=== PATIENT | female | born 1950 | race Caucasian/White ===

== ENCOUNTER 2017-09-14 19:22 | Observation (INO) ==
[2017-09-14] MEDS ORDERED: Aspirin 81 MG TAB.CHEW PO ONE (19:44)
[2017-09-14] MEDS ORDERED: Nitroglycerin 0.4 MG TAB.SUBL SL PRN (19:44)
--- NOTE | 2017-09-14 19:56 | Emergency Department Note ---
Disposition Clinical Impression: Chest pain Qualifiers: Chest pain type: unspecified Qualified Code(s): R07.9 - Chest pain, unspecified Disposition: Admitted As Inpatient Condition: Fair Time of Disposition: 22:20 General Adult HPI - General Chief complaint: ED Shortness of Breath/Dyspnea Stated complaint: ronit chest pain Time Seen by Provider: 09/14/17 19:32 Source: patient Mode of arrival: ambulatory Limitations: no limitations Nursing Notes Reviewed: Yes Vital Signs Reviewed: Yes - History of Present Illness HPI Narrative: Patient is a 66 showed female with history of heart catheterization with no stents presents to the emergency department for the complaint of substernal chest pain that is pressure-like, 7/10 pain, with radiation into her left arm, back, and neck. She is associated with exertion and shortness of breath. No nausea or vomiting. States that the pain has been constant since 7:30 AM this morning and was sudden onset. Pain Scale: 9 - Related Data Home Medications Medication Instructions Recorded Confirmed Albuterol Sulfate [Albuterol 2 puff IH Q4HR 06/24/15 01/19/16 Inhaler] Citalopram Hydrobromide [Celexa] 20 mg PO DAILY 06/24/15 01/19/16 Fluticasone Propionate Nasal 1 spray NS DAILY 06/24/15 01/19/16 [Flonase] Gabapentin [Neurontin] 600 mg PO TID 06/24/15 01/19/16 Loratadine [Claritin] 10 mg PO DAILY 06/24/15 01/19/16 Pantoprazole Sodium [Protonix] 40 mg PO DAILY 06/24/15 01/19/16 Propranolol LA (24 HR) [Inderal LA] 60 mg PO DAILY 06/24/15 01/19/16 Simvastatin [Zocor] 20 mg PO QPM 06/24/15 01/19/16 Venlafaxine HCl [Effexor Xr] 75 mg PO DAILY 06/24/15 01/19/16 Cyclobenzaprine [Flexeril] 10 mg PO BID 01/19/16 01/19/16 Hydrocodone/Acetaminophen [[place] 1 tab PO Q6H PRN 01/19/16 01/19/16 5-325 Tablet] Ranitidine HCl [Zantac] 300 mg PO DAILY 01/19/16 01/19/16 Tiotropium [Spiriva] 1 cap IH DAILY 01/19/16 01/19/16 Previous Rx's Medication Instructions Recorded Nitroglycerin 0.4 mg SL Q5MIN PRN #90 tab.subl 06/26/15 Allergies Allergy/AdvReac Type Severity Reaction Status Date / Time Diclofenac [From Voltaren] Allergy See Verified 02/21/15 08:25 Comments acetaminophen [From Percocet] AdvReac See Verified 02/03/15 23:10 Comments codeine AdvReac Nausea Verified 02/03/15 23:10 Erythromycin Base AdvReac Nausea Verified 02/03/15 23:10 [From E-Mycin] Oxycodone [From Percocet] AdvReac See Verified 02/03/15 23:10 Comments Sulfa (Sulfonamide AdvReac See Verified 02/03/15 23:10 Antibiotics) Comments All systems ED: reviewed and negative except as stated. Review of Systems: As Per HPI Constitutional: Denies: fever, chills Cardiovascular: Reports: chest pain. Denies: palpitations Respiratory: Denies: cough, dyspnea, wheezes Past Medical History - Past Medical History Attestation: Yes The following information was validated with the patient. 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 Patient does appear anxious. Tachycardic at 103 and blood pressure is elevated in the 160's/90's. HEAD: Normocephalic; atraumatic EYES: PERRL, no scleral icterus NOSE: The nose is normal in appearance without rhinorrhea NECK: No JVD or distended neck veins RESP: Normal chest excursion with respiration; breath sounds clear and equal bilaterally; no wheezes, rhonchi, or rales CARD: Regular rhythm, without murmurs, rub or gallop ABD: Non-distended; non-tender, soft, without rigidity, rebound or guarding,no pulsatile mass CHEST: No pain with palpation SKIN: Normal for age and race; warm and dry without diaphoresis ; no apparent lesions EXTREMITIES: Pulses are 2 plus and equal times 4 extremities, no peripheral edema or calf muscle pain - General General appearance: alert Course Course Narrative: Plan at this time is to perform a cardiac evaluation for this emergency medicine standpoint which will include a troponin, EKG and chest x-ray. We will also order a d-dimer to rule out a pulmonary embolism. Patient will undergo a sublingual nitroglycerin trial to see if that improves her pain and will also be given aspirin at this time. Her EKG shows no ischemic changes at this time. - Reevaluation(s) Reevaluation #1: Patient's lab work has returned as essentially unremarkable. Her troponin is negative, chest x-ray is negative as well. The patient did have an elevated d- dimer, however chest CTA was negative for pulmonary embolism. Patient states that her pain is currently improved to a 3/10. She was trialed a nitroglycerin that brought her pain scale down by 1., however her blood pressure had a large drop to systolic 90s. Therefore further nitroglycerin was withheld. At this time the patient's workup is negative. Discussed plan to give her ibuprofen for her current chest pain that is 3 out of 10. Admitted to the hospital for further evaluation and treatment of her pain. Time: 22:20 Vital Signs Temperature 97.6 F 09/14/17 19:23 Pulse Rate 111 09/14/17 19:23 Respiratory Rate 22 09/14/17 19:23 Blood Pressure 174/104 09/14/17 19:23 O2 Sat by Pulse Oximetry 97 09/14/17 19:23 Temperature 97.6 F 09/14/17 19:23 Pulse Rate 94 09/14/17 21:56 Respiratory Rate 16 09/14/17 21:56 Blood Pressure 104/70 09/14/17 21:56 O2 Sat by Pulse Oximetry 96 09/14/17 21:56 Oxygen Delivery Oxygen Delivery Nasal Cannula Medical Decision Making - Medical Records Medical records reviewed: Yes I reviewed the patient's medical records. - Lab Data Lab results reviewed: Yes I reviewed the patient's lab results. Result diagrams: 09/14/17 19:39 09/14/17 19:39 Lab Results 09/14/17 09/14/17 09/14/17 Range/Units 19:39 19:39 19:39 WBC 7.5 (4.3-11.1) K/mcL RBC 4.99 H (3.82-4.97) M/mcL Hgb 12.6 (11.5-15.4) g/dL Hct 41.1 (35.3-44.9) % MCV 82.4 L (83.0-100.0) fL MCH 25.3 L (28.0-33.3) pg MCHC 30.7 L (31.6-35.5) g/dL RDW 14.7 H (11.5-14.5) % Plt Count 374 (140-400) K/mcL MPV 10.2 (9.4-12.4) fL Immature Gran % 0.5 (0-4) % Seg Neutrophils % 54.5 % Lymphocytes % 31.1 % Monocytes % 8.7 % Eosinophils % 4.4 % Basophils % 0.8 % Neutrophils # 4.1 (1.6-8.9) K/mcL Lymphocytes # 2.3 (0.6-4.6) K/mcL Monocytes # 0.7 (0.0-1.3) K/mcL Eosinophils # 0.3 (0.0-0.6) K/mcL Basophils # 0.1 (0.0-0.2) K/mcL D-Dimer 1470 H (0-500) ng/mLFEU Sodium 141 (136-145) mEq/L Potassium 3.3 L (3.5-5.1) mEq/L Chloride 109 H (98-107) mEq/L Carbon Dioxide 23 (23-29) mEq/L BUN 12 (8-23) mg/dL Creatinine 0.93 (0.60-1.20) mg/dL Est GFR ( Amer) > 60 (> 60) Est GFR (Non-Af Amer) > 60 (> 60) BUN/Creatinine Ratio 13 (6-26) Glucose 147 H (70-105) mg/dL Calculated Osmolality 294 (280-300) Lactic Acid (0.5-2.2) mmol/L Calcium 9.3 (8.6-10.3) mg/dL Troponin I < 0.03 (< 0.04) ng/mL B-Natriuretic Peptide (Less than 100) pg/mL 09/14/17 09/14/17 09/14/17 Range/Units 19:39 19:39 22:05 WBC (4.3-11.1) K/mcL RBC (3.82-4.97) M/mcL Hgb (11.5-15.4) g/dL Hct (35.3-44.9) % MCV (83.0-100.0) fL MCH (28.0-33.3) pg MCHC (31.6-35.5) g/dL RDW (11.5-14.5) % Plt Count (140-400) K/mcL MPV (9.4-12.4) fL Immature Gran % (0-4) % Seg Neutrophils % % Lymphocytes % % Monocytes % % Eosinophils % % Basophils % % Neutrophils # (1.6-8.9) K/mcL Lymphocytes # (0.6-4.6) K/mcL Monocytes # (0.0-1.3) K/mcL Eosinophils # (0.0-0.6) K/mcL Basophils # (0.0-0.2) K/mcL D-Dimer (0-500) ng/mLFEU Sodium (136-145) mEq/L Potassium (3.5-5.1) mEq/L Chloride (98-107) mEq/L Carbon Dioxide (23-29) mEq/L BUN (8-23) mg/dL Creatinine (0.60-1.20) mg/dL Est GFR ( Amer) (> 60) Est GFR (Non-Af Amer) (> 60) BUN/Creatinine Ratio (6-26) Glucose (70-105) mg/dL Calculated Osmolality (280-300) Lactic Acid 2.4 H 1.3 (0.5-2.2) mmol/L Calcium (8.6-10.3) mg/dL Troponin I (< 0.04) ng/mL B-Natriuretic Peptide 42 (Less than 100) pg/mL - Radiology Data Radiology results reviewed: Yes I reviewed the patient's radiology results. Chest X-Ray 09/14/17 19:26 IMPRESSION: No radiographic evidence of acute cardiopulmonary disease. D/ / Nicko Baires / Nicko Baires Interpreting Provider: Nicko Baires Chest CTA 04/07/18 20:31 IMPRESSION: 1. No evidence of pulmonary embolic disease. 2. No acute pulmonary findings. Previous right upper lobectomy. D/ / 09/14/2017 21:16:36 Royal Lyon MD / mari Interpreting Provider: Royal Lyon MD - EKG Data EKG #1 EKG attestation: Yes I reviewed and interpreted this EKG. EKG results narrative: EKG done at 19:27 shows sinus tachycardia at a rate of 108 bpm. Normal axis. [place] is 151, QRS is 69, QT is 320 and QTc is 383 these are within normal limits. No signs of ST elevation, ST depression or Q waves present. This EKG has no acute changes from EKG done on December 222015. Attestation Statement - Attestation Attestation: Patient was seen with resident physician. I reviewed the history, physical, assessment and plan, and agree with the findings. I also personally evaluated this patient and had [id number] time with this patient. 66-year-old female presents to the emergency department with chief complaint of chest pain and shortness of breath. Sudden onset 7:30 this morning. Chest chest pain is a pressure sensation in the midsternal area. Shortness of breath is associated with the episodes. They last approximately 10 minutes in duration and have thus far responded spontaneously. His worse or exacerbated by walking. She says she cannot even walk to the kitchen from the living room at this point. She gets short of breath chest pain and she feels lightheaded. Denies nausea vomiting or diarrhea. Physical exam vital signs are stable. ENT is unremarkable. Heart and lungs are normal. Abdomen is soft and nontender. Extremities unremarkable. Neurologically intact. Skin no rashes. Psych normal. ED course we will treat patient's discomfort with nitroglycerin she is actively having chest pain. Her EKG showsacute ischemic changes. We will also do a full cardiac workup and admit the patient to the hospitalist service for additional evaluation and treatment. Pain was improved throughout her stay but not completely resolved. She was given a nitroglycerin which showed her blood pressure significantly. Additional nitroglycerin was withheld at that point. Hemodynamically she remained stable while in the emergency department I agree with the resident physician assessment and plan.
[2017-09-14 20:00] LABS: Basophils # 0.1 K/mcL (0.0-0.2); Basophils % 0.8 %; Eosinophils # 0.3 K/mcL (0.0-0.6); Eosinophils % 4.4 %; Hematocrit 41.1 % (35.3-44.9); Hemoglobin 12.6 g/dL (11.5-15.4); Immature Granulocytes % 0.5 % (0-4); Lymphocytes # 2.3 K/mcL (0.6-4.6); Lymphocytes % 31.1 %; Mean Corpuscular HGB Conc 30.7 g/dL (31.6-35.5); Mean Corpuscular Hemoglobin 25.3 pg (28.0-33.3); Mean Corpuscular Volume 82.4 fL (83.0-100.0); Mean Platelet Volume 10.2 fL (9.4-12.4); Monocytes # 0.7 K/mcL (0.0-1.3); Monocytes % 8.7 %; Neutrophils # 4.1 K/mcL (1.6-8.9); Platelet Count 374 K/mcL (140-400); Red Blood Count 4.99 M/mcL (3.82-4.97); Red Cell Distribution Width 14.7 % (11.5-14.5); Segmented Neutrophils % 54.5 %
[2017-09-14 20:18] LABS: BUN/Creatinine Ratio 13 (6-26); Blood Urea Nitrogen 12 mg/dL (8-23); Calcium 9.3 mg/dL (8.6-10.3); Carbon Dioxide 23 mEq/L (23-29); Chloride 109 mEq/L (98-107); Glucose 147 mg/dL (70-105); Osmolality,Calculated 294 (280-300); Potassium 3.3 mEq/L (3.5-5.1); Sodium 141 mEq/L (136-145); Troponin I < 0.03 ng/mL (< 0.04); eGFR For African Americans > 60 (> 60); eGFR For Non-African Americans > 60 (> 60)
[2017-09-14] MEDS ORDERED: Ibuprofen 600 MG TABLET PO ONE (22:17)
[2017-09-14] MEDS ORDERED: Naloxone 0.4 MG/ML INJ IVP PRN (22:56)
--- NOTE | 2017-09-14 23:03 | Internal Med History&Physical ---
Date of Encounter: 09/15/17 Time of Encounter: 23:01 Internal Medicine - H&P: HPI Chief complaint: Chest pain Admitted From: Emergency Dept Plans for Post Hospital Care: Home History of present illness: Ms. Groves is a 66 year old female with h/o COPD on 2L O2, lung cancer s/p right upper lobectomy in 2006, GERD, hyperlipidemia, hypertension, and TIA comes with complaint of substernal chest pain that is pressure-like, 7/10 pain, with radiation into her left arm, back, and neck. She reports pain with exertion and shortness of breath. No nausea or vomiting. No diaphoresis. Pain started at 7 in the morning and was sudden. EKG showed sinus tachycardia. No ST or T-wave changes. Workup was only remarkable for elevated D dimers for which a CTA ruled out a PE. Denies fever, chills, nausea, vomiting, abdominal pain, diarrhea, constipation, urinary symptoms, or neurological symptoms. The patient had a stress test back in 2015 which was negative. 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 She also has h/o TIA years ago and does not take ASA or Plavix but tells me she takes a statin. Has a h/o tobacco abuse and strong family history of cardiac disease. Past Med Surg Social Fam HX - Past Medical History Medical history: arthritis, cancer, COPD, CVA, GERD, hyperlipidemia, hypertension, other Psychiatric history: no psych history - Past Surgical History Surgical History: cancer surgery, cholecystectomy, herniorrhaphy, hysterectomy, other - Social History Smoking Status: Former smoker Smokeless Tobacco Status: No Alcohol use: occasionally Drug use: none - Family History Mother Adopted: No Living Status: Hx Family Cardiac Disorders: No Hx Family Respiratory Disorders: No Hx Family Cancer: No Hx Family GI Disorders: No Hx Family Endocrine Disorder: No Hx Family Neuromuscular Disorders: No Hx Family Neurologic Disorders: No Hx Family HEENT Disorders: No Hx Family Autoimmune Disorders: No Father Adopted: No Family Member Ethnicity: Non- Living Status: Age at : 62 Cause of : Black lung Hx Family Cardiac Disorders: Yes ([place]) Hx Family Respiratory Disorders: Yes (black lung) Hx Family Cancer: Yes (lung) Hx Family GI Disorders: No Hx Family Genitourinary Disorders: No Hx Family Endocrine Disorder: No Hx Family Musculoskeletal Disorders: No Hx Family Neuromuscular Disorders: No Hx Family Neurologic Disorders: No Hx Family HEENT Disorders: No Hx Family Autoimmune Disorders: No Hx Family Reproductive Disorders: No Hx Family Psychosocial Disorders: No Hx Family Medical Disorders: No Internal Medicine - H&P: Meds Albuterol Inhaler 1 puff IH 2-4XD PRN 09/14/17 [History] CeleXA 40 mg PO DAILY 09/14/17 [History] Flomax 0.4 mg PO DAILY 09/14/17 [History] Gabapentin 600 mg PO DAILY 09/14/17 [History] Inderal 40 mg PO DAILY 09/14/17 [History] PriLOSEC 40 mg PO DAILY 09/14/17 [History] Simvastatin [Zocor] 40 mg PO HS 09/14/17 [History] Spiriva IH DAILY 09/14/17 [History] 3 Allergy/AdvReac Type Severity Reaction Status Date / Time Diclofenac [From Voltaren] Allergy See Verified 02/21/15 08:25 Comments acetaminophen [From Percocet] AdvReac See Verified 02/03/15 23:10 Comments codeine AdvReac Nausea Verified 02/03/15 23:10 Erythromycin Base AdvReac Nausea Verified 02/03/15 23:10 [From E-Mycin] Oxycodone [From Percocet] AdvReac See Verified 02/03/15 23:10 Comments Sulfa (Sulfonamide AdvReac See Verified 02/03/15 23:10 Antibiotics) Comments All Systems PM: A 10-system review of systems was performed and is negative for pertinent findings except as documented above in the HPI. Review of systems: All systems reviewed are negative except as mentioned above - Constitutional Vitals: Temp Pulse Resp BP Pulse Ox 97.6 F 94 16 104/70 96 09/14/17 19:23 09/14/17 21:56 09/14/17 21:56 09/14/17 21:56 09/14/17 21:56 Exam: GEN: NAD HEENT: AT, NC, No cyanosis, oral mucosa is moist, No JVD Lymphatics: No lymphadenoapthy Eyes: Extrocular muscles intact, anicteric CVS:RRR. S1, S2, No m/r/g RESP: CTAB ABD: Soft, NT, ND, +BS EXT: No edema, No rashes, 2+ DP NEURO: Nonfocal, CN II-XII intact, No focal motor or sensory deficits Psych: Cooperative, Not anxious or depressed Internal Med - H&P Results - Labs CBC & Chem 7: 09/14/17 19:39 09/14/17 19:39 - Assessment and plan (1) Chest pain Current Visit: Yes Status: Acute Assessment and plan: Admit. Tele bed. trend cardiac enzymes. Stress test possibly Saturday. Check A1c , lipid panel. SL nitro. Received 4 baby ASA in ED and SL nitro. Pain is better. Says she had a LHC about 6 years ago?? Thinks she has a stent but not sure. Does not follow up with cardiology. Not on ASA at home. She is on Inderal. Qualifiers: Chest pain type: unspecified Qualified Code(s): R07.9 - Chest pain, unspecified (2) Elevated d-dimer Current Visit: Yes Status: Acute Assessment and plan: Check LE dopplers. CTA negative for PE. (3) Hypertension Current Visit: No Status: Acute Assessment and plan: Resume home anti-hypertensives. Qualifiers: Hypertension type: essential hypertension Qualified Code(s): I10 - Essential (primary) hypertension (4) COPD (chronic obstructive pulmonary disease) Current Visit: No Status: Acute Assessment and plan: Resume home inhalers. Not in exacerbation Qualifiers: COPD type: emphysema Emphysema type: unspecified Qualified Code(s): J43.9 - Emphysema, unspecified (5) H/O TIA (transient ischemic attack) and stroke Current Visit: Yes Status: Acute Assessment and plan: Patient is not on ASA. She is on statin. Consider adding ASA specially if patient has a stent as she says. (6) DVT prophylaxis Current Visit: No Status: Acute Assessment and plan: Heparin SQ - Time Spent With Patient Total time spent is greater than 50% in coordination of care (as documented) at patient's floor/unit and/or counseling patient:
[2017-09-14] MEDS: Acetaminophen 325 MG TABLET PO PRN (23:55)
[2017-09-15 03:10] LABS: Basophils # 0.1 K/mcL (0.0-0.2); Basophils % 0.8 %; Eosinophils # 0.3 K/mcL (0.0-0.6); Eosinophils % 4.2 %; Hematocrit 35.6 % (35.3-44.9); Hemoglobin 11.1 g/dL (11.5-15.4); Immature Granulocytes % 0.4 % (0-4); Lymphocytes # 2.2 K/mcL (0.6-4.6); Lymphocytes % 30.2 %; Mean Corpuscular HGB Conc 31.2 g/dL (31.6-35.5); Mean Corpuscular Hemoglobin 25.5 pg (28.0-33.3); Mean Corpuscular Volume 81.8 fL (83.0-100.0); Mean Platelet Volume 9.9 fL (9.4-12.4); Monocytes # 0.8 K/mcL (0.0-1.3); Monocytes % 11.1 %; Neutrophils # 3.9 K/mcL (1.6-8.9); Platelet Count 326 K/mcL (140-400); Red Blood Count 4.35 M/mcL (3.82-4.97); Red Cell Distribution Width 14.6 % (11.5-14.5); Segmented Neutrophils % 53.3 %
[2017-09-15 03:38] LABS: BUN/Creatinine Ratio 17 (6-26); Blood Urea Nitrogen 16 mg/dL (8-23); Calcium 9.2 mg/dL (8.6-10.3); Carbon Dioxide 23 mEq/L (23-29); Chloride 108 mEq/L (98-107); Glucose 104 mg/dL (70-105); Magnesium 1.8 mg/dL (1.6-2.6); Osmolality,Calculated 285 (280-300); Potassium 4.1 mEq/L (3.5-5.1); Sodium 137 mEq/L (136-145); eGFR For African Americans > 60 (> 60); eGFR For Non-African Americans > 60 (> 60)
[2017-09-15 03:39] LABS: Troponin I < 0.03 ng/mL (< 0.04)
[2017-09-15] MEDS: Acetaminophen 325 MG TABLET PO PRN (06:10)
[2017-09-15 07:59] LABS: Estimated Average Glucose 126 mg/dl
[2017-09-15 09:03] LABS: Chol/HDL Ratio 4.1 (0-4.9); Cholesterol 173 mg/dL (< 200); HDL Cholesterol 42 mg/dL (40-59); LDL Cholesterol,Calculated 100 mg/dL (0-99); Triglycerides 153 mg/dL (< 150)
[2017-09-15] MEDS: Gabapentin 300 MG CAPSULE PO SCH (09:03)
[2017-09-15 09:04] LABS: Troponin I < 0.03 ng/mL (< 0.04)
--- NOTE | 2017-09-15 14:38 | Internal Med Progress Note ---
Date of Encounter: 09/15/17 Time of Encounter: 14:36 - Assessment and plan (1) Chest pain Current Visit: Yes Status: Acute Assessment and plan: Most likely musculoskeletal. However given her risk factors and comorbidities, will plan for stress test in a.m. Qualifiers: Chest pain type: unspecified Qualified Code(s): R07.9 - Chest pain, unspecified (2) Hypertension Current Visit: Yes Status: Chronic Assessment and plan: Blood pressure is well controlled Qualifiers: Hypertension type: essential hypertension Qualified Code(s): I10 - Essential (primary) hypertension (3) COPD (chronic obstructive pulmonary disease) Current Visit: Yes Status: Chronic Assessment and plan: Will start bronchodilators as needed. Not in acute exacerbation Qualifiers: COPD type: emphysema Emphysema type: unspecified Qualified Code(s): J43.9 - Emphysema, unspecified (4) DVT prophylaxis Current Visit: Yes Status: Acute Assessment and plan: With SCDs (5) Elevated d-dimer Current Visit: Yes Status: Acute (6) H/O TIA (transient ischemic attack) and stroke Current Visit: Yes Status: Acute Assessment and plan: Will start patient on aspirin. Continue statin. - Time Spent With Patient Total time spent is greater than 50% in coordination of care (as documented) at patient's floor/unit and/or counseling patient: - Subjective Interval history: Sitting up in chair. Reports central chest pain. Worsens with movement, cough and deep breaths. - Constitutional Vitals: Temp Pulse Resp BP Pulse Ox 97.9 F 65 17 101/57 95 09/15/17 11:13 09/15/17 11:13 09/15/17 11:13 09/15/17 11:13 09/15/17 11:13 General appearance: Present: cooperative, A&O X 3, answers questions appropriately - Neck Neck exam general surgery: Present: supple, trachea midline. Absent: lymphadenopathy - Respiratory Respiratory exam: Present: CTAB. Absent: accessory muscle use, rales, rhonchi, wheezes - Cardiovascular Cardiovascular exam: Present: RRR, +S1, +S2. Absent: diastolic murmur, gallop, rubs, systolic murmur Additional comments: Anterior chest wall tenderness present. - Extremities Exam Extremities exam: Present: warm, radial pulses palpable and symmetrical. Absent : calf tenderness, cyanotic, pedal edema - Neurological Exam Neurological exam: Present: alert, oriented X3, no focal deficits. Absent: facial droop, speech deficit - Skin Skin exam: Present: dry, intact Internal Medicine: Result - Labs CBC & Chem 7: 09/15/17 02:52 09/15/17 02:52 Labs: Short CBC 09/15/17 Range/Units 02:52 WBC 7.4 (4.3-11.1) K/mcL Hgb 11.1 L D (11.5-15.4) g/dL Hct 35.6 (35.3-44.9) % Plt Count 326 (140-400) K/mcL Neutrophils # 3.9 (1.6-8.9) K/mcL BMP 09/15/17 02:52 Sodium 137 Potassium 4.1 Chloride 108 H Carbon Dioxide 23 BUN 16 Creatinine 0.93 Glucose 104 Calcium 9.2 Cardiac Enzymes 09/15/17 09/15/17 Range/Units 02:52 08:03 Troponin I < 0.03 < 0.03 (< 0.04) ng/mL - ABG Interpretation ABG results: PT/INR, D-dimer D-Dimer 1470 ng/mLFEU (0-500) H 09/14/17 19:39 Consult Discharge Plan - Plan Referrals: Miguel Vitale MD [Primary Care Provider] -
[2017-09-15] MEDS: *HR* HYDROcodone/Acet 5/325 mg TABLET PO PRN ×2 (14:45→20:43)
[2017-09-15] MEDS ORDERED: Ipratropium/Albuterol Neb 3 ML IH PRN (15:45)
[2017-09-16] MEDS ORDERED: Regadenoson 0.4 MG/5 ML SYRINGE IVP ONE (05:50)
[2017-09-16] MEDS: Gabapentin 300 MG CAPSULE PO SCH (07:48)
[2017-09-16] MEDS: Aspirin Enteric Coated 81 MG Tablet PO SCH (07:48)
[2017-09-16] MEDS: *HR* HYDROcodone/Acet 5/325 mg TABLET PO PRN (14:39)
[2017-09-16] MEDS ORDERED: Ketorolac 30 MG/ML VIAL IVP PRN (16:21)
--- NOTE | 2017-09-16 16:45 | Internal Med Progress Note ---
Date of Encounter: 09/16/17 Time of Encounter: 16:44 - Assessment and plan (1) Chest pain Current Visit: Yes Status: Acute Assessment and plan: Chest pain. Central in location. Most likely musculoskeletal but patient does have risk factors for coronary artery disease and angina. Stress test in process. Continue supportive care. Qualifiers: Chest pain type: precordial pain Qualified Code(s): R07.2 - Precordial pain (2) Hypertension Current Visit: Yes Status: Chronic Assessment and plan: Blood pressure is well controlled. Qualifiers: Hypertension type: essential hypertension Qualified Code(s): I10 - Essential (primary) hypertension (3) COPD (chronic obstructive pulmonary disease) Current Visit: Yes Status: Chronic Assessment and plan: Continue bronchodilators. Not in acute exacerbation. Qualifiers: COPD type: emphysema Emphysema type: unspecified Qualified Code(s): J43.9 - Emphysema, unspecified (4) DVT prophylaxis Current Visit: Yes Status: Acute Assessment and plan: On SCDs (5) Elevated d-dimer Current Visit: Yes Status: Acute Assessment and plan: No embolism per CTA (6) H/O TIA (transient ischemic attack) and stroke Current Visit: Yes Status: Acute Assessment and plan: Continue aspirin, statin - Time Spent With Patient Total time spent is greater than 50% in coordination of care (as documented) at patient's floor/unit and/or counseling patient: - Subjective Interval history: Evaluated patient and this morning. Patient was continuing to have central chest pain radiating to back. Improves with pain medications. Worsens with movement and deep breaths. Underwent part 1 of chronic stress test today. Part 2 scheduled for tomorrow morning. - Constitutional Vitals: Temp Pulse Resp BP Pulse Ox 98.4 F 71 18 116/70 94 09/16/17 14:24 09/16/17 14:24 09/16/17 14:24 09/16/17 14:24 09/16/17 14:24 General appearance: Present: cooperative, A&O X 3, answers questions appropriately - Neck Neck exam general surgery: Present: supple, trachea midline. Absent: lymphadenopathy - Respiratory Respiratory exam: Present: chest wall tenderness (Central chest wall tenderness) . Absent: accessory muscle use, rales, rhonchi, wheezes - Cardiovascular Cardiovascular exam: Present: RRR, +S1, +S2. Absent: diastolic murmur, gallop, rubs, systolic murmur - GI/Abdominal GI/Abdominal exam: Present: normal bowel sounds, soft, no peritoneal signs. Absent: distended, tenderness - Extremities Exam Extremities exam: Present: warm, radial pulses palpable and symmetrical. Absent : calf tenderness, cyanotic, pedal edema - Neurological Exam Neurological exam: Present: CN II-XII intact, oriented X3, no focal deficits. Absent: pronater drift, facial droop, speech deficit Internal Medicine: Result - Labs CBC & Chem 7: 09/15/17 02:52 09/15/17 02:52 - ABG Interpretation ABG results: PT/INR, D-dimer D-Dimer 1470 ng/mLFEU (0-500) H 09/14/17 19:39 Consult Discharge Plan - Plan Referrals: Miguel Vitale MD [Primary Care Provider] -
[2017-09-17] MEDS: Aspirin Enteric Coated 81 MG Tablet PO SCH (09:12)
[2017-09-17] MEDS: Gabapentin 300 MG CAPSULE PO SCH (09:12)
[2017-09-17 11:08] VITALS: BP 111/68
--- NOTE | 2017-09-17 12:47 | Discharge Summary ---
- NOTES TO OUTPATIENT PROVIDER Notes to Outpatient Provider: f/u with PCP within a week. Orders not resulted at time of discharge: Pending orders 09/15/17 04:00 NM hesham perf SPECT multi [NM] AM 0400 Date of Encounter: 09/17/17 Time of Encounter: 12:44 - Discharge Diagnosis (1) Chest pain Priority: Primary Status: Acute Qualifiers: Chest pain type: precordial pain Qualified Code(s): R07.2 - Precordial pain (2) Hypertension Priority: Secondary Status: Chronic Qualifiers: Hypertension type: essential hypertension Qualified Code(s): I10 - Essential (primary) hypertension (3) COPD (chronic obstructive pulmonary disease) Priority: Secondary Status: Chronic Qualifiers: COPD type: emphysema Emphysema type: unspecified Qualified Code(s): J43.9 - Emphysema, unspecified (4) DVT prophylaxis Priority: Primary Status: Acute (5) Elevated d-dimer Priority: Primary Status: Acute (6) H/O TIA (transient ischemic attack) and stroke Priority: Secondary Status: Chronic Hospital course: Ms. Groves is a 66 year old female with h/o COPD on 2L O2, lung cancer s/p right upper lobectomy in 2006, GERD, hyperlipidemia, hypertension, and TIA comes with complaint of substernal chest pain and shortness of breath. Troponin was negative 3, EKG showed sinus tachycardia. No ST or T-wave changes. Further workup revealed elevated D dimers for which a CTA ruled out a PE, doppler for DVT was also negative. She underwent stress nuclear test on 03/2018, results revealed no ischemic change. Her chest pain is mostly likely noncardiac related. Her vital signs have been stable. Her chest pain has resolved. She will be discharged home today. She will follow-up with PCP within a week. Discharge discussed with: patient Time spent discussing smoking cessation with patient: more than 10 minutes - Time Spent with Patient Total time spent providing and/or coordinating discharge services: Greater than 30 minutes - Discharge Medications Prescriptions: Aspirin Enteric Coated [Aspirin EC] 81 mg PO DAILY #60 tablet.dr Wooten Medications: Albuterol Sulfate [Proair Hfa] 1 puff IH DAILY PRN 09/14/17 [History] Citalopram Hydrobromide [Citalopram HBr] 40 mg PO DAILY 09/14/17 [History] Gabapentin [Neurontin] 600 mg PO BID 09/14/17 [History] Omeprazole [PriLOSEC] 40 mg PO DAILY 09/14/17 [History] Propranolol HCl 40 mg PO DAILY 09/14/17 [History] Simvastatin [Zocor] 40 mg PO HS 09/14/17 [History] Tamsulosin [Flomax] 0.4 mg PO DAILY 09/14/17 [History] Tiotropium [Spiriva] 18 mcg IH 0700 09/14/17 [History] Aspirin Enteric Coated [Aspirin EC] 81 mg PO DAILY #60 tablet. 09/17/17 [Rx] Allergies/Adverse Reactions: 3 Allergy/AdvReac Type Severity Reaction Status Date / Time Diclofenac [From Voltaren] Allergy See Verified 09/16/17 11:37 Comments acetaminophen [From Percocet] AdvReac See Verified 09/16/17 11:37 Comments codeine AdvReac Nausea Verified 09/16/17 11:37 Erythromycin Base AdvReac Nausea Verified 09/16/17 11:37 [From E-Mycin] Oxycodone [From Percocet] AdvReac See Verified 09/16/17 11:37 Comments Sulfa (Sulfonamide AdvReac See Verified 09/16/17 11:37 Antibiotics) Comments Date of admission: 09/14/17 22:40 Primary care physician: Miguel Vitale MD Anticipated date of discharge: 09/17/17 - Constitutional Vitals: Temp Pulse Resp BP Pulse Ox 97.9 F 73 14 111/68 94 09/17/17 11:03 09/17/17 11:03 09/17/17 11:03 09/17/17 11:03 09/17/17 11:03 General appearance: Present: cooperative, A&O X 3, answers questions appropriately Exam: PHYSICAL EXAMINATION: GENERAL APPEARANCE: The patient is alert, oriented and in no acute distress. HEENT: Head is normocephalic. The sinuses are nontender. Pupils are equal and reactive. The nares are patent. Oropharynx clear without lesions. NECK: Supple without lymphadenopathy. HEART: Regular rate and rhythm. LUNGS: No crackles or wheezes are heard. ABDOMEN: Soft, nontender, nondistended with good bowel sounds heard. Inguinal area is normal. EXTREMITIES: Without cyanosis, clubbing or edema. NEUROLOGICAL: Gross nonfocal. SKIN: Warm and dry without any rash. - Patient Status Disposition: Home, Self-Care Condition: Fair Functional capacity at discharge: independent ambulation Overall status at discharge: patient is back to baseline - Discharge Instructions Follow Up With: Miguel Vitale MD [Primary Care Provider] - - Diet and Activity Activity: increase activity as tolerated Diet: low fat, low cholesterol, low salt diet
--- NOTE | 2017-09-18 00:27 | Electrocardiograph Report ---
[place] [id number] Test Date: 2017-09-14 Pat Name: Jane Groves Department: 104 Room: [facility] Gender: F Security Administrator: NBA : [id number] Requested By: Abrahan Garces Order Number: [id number] Reading MD: Vanna Miller Measurements Intervals [place] Rate: 108 P: 53 VT: 151 QRS: -36 QRSD: 69 T: 50 QT: 320 QTc: 383 Interpretive Statements SINUS TACHYCARDIA INFERIOR MYOCARDIAL INFARCTION, PROBABLY OLD Electronically Signed On 09-18-2017 0:26:05 EDT by Vanna Miller
== END 2017-09-17 13:32 | disposition home or self-care (01) ==
LOC: 3NENU 19:22 → EMEROO 19:22 → SUATTDRO 22:40 → 3NENU 23:06
PROVIDERS: ADMIT Family Medicine; ATTEND Internal Medicine